=== PATIENT | male | born 1985 | race Two or more races ===

== ENCOUNTER 2016-07-07 12:07 | Emergency (ER) | payer MEDICAID ==
[~2016-07-07] VITALS: Ht 175.3 cm; Wt 68.0 kg
[2016-07-07 12:07] VITALS: BP 113/72
[~2016-07-07 12:07] MED LIST: FINA1TAB PO
== END 2016-07-07 13:39 | disposition home or self-care (01) ==
LOC: ER 12:08
DX: R19.7 Diarrhea, unspecified (principal)
CPT/HCPCS: 99283; A4606; Z7610